=== PATIENT | female | born 1955 | race Caucasian/White ===

== ENCOUNTER 2017-01-13 18:03 | Inpatient (IN) | payer BC, MEDICARE | END 2017-01-17 12:10 | disposition home or self-care (01) | DRG 690 | LOC: ER 18:03 → MED 23:40 | PROVIDERS: ADMIT Internal Medicine | DX: N10 Acute pyelonephritis (principal); Z94.0 Kidney transplant status; N18.6 End stage renal disease; N17.9 Acute kidney failure, unspecified; E86.0 Dehydration; B37.9 Candidiasis, unspecified; Z86.718 Personal history of other venous thrombosis and embolism; Z79.01 Long term (current) use of anticoagulants; F41.9 Anxiety disorder, unspecified; F32.9 Major depressive disorder, single episode, unspecified; K21.9 Gastro-esophageal reflux disease without esophagitis; E78.5 Hyperlipidemia, unspecified; Z79.899 Other long term (current) drug therapy; Z90.49 Acquired absence of other specified parts of digestive tract; Z82.61 Family history of arthritis; Z83.2 Family history of diseases of the blood and blood-forming organs and certain disorders involving the immune mechanism; Z88.2 Allergy status to sulfonamides; Z88.6 Allergy status to analgesic agent; Z88.1 Allergy status to other antibiotic agents; Z91.041 Radiographic dye allergy status | CPT/HCPCS: 36415; 97161-GP; 97165 ==

== ENCOUNTER 2017-01-13 18:03 | Emergency (ER) | payer BC, MEDICARE | END 2017-01-13 23:39 | disposition critical access hospital (66) | LOC: ER 18:03 | DX: N10 Acute pyelonephritis (principal); D64.9 Anemia, unspecified; Z94.0 Kidney transplant status; Z90.49 Acquired absence of other specified parts of digestive tract; Z79.01 Long term (current) use of anticoagulants; Z79.899 Other long term (current) drug therapy; Z88.1 Allergy status to other antibiotic agents; Z88.2 Allergy status to sulfonamides; Z88.6 Allergy status to analgesic agent; Z91.041 Radiographic dye allergy status | CPT/HCPCS: 36415; 96361; 96365 ==